=== PATIENT | female | born 1995 | race Caucasian/White ===

== ENCOUNTER 2017-05-05 02:50 | Inpatient (IN) | payer MEDICAID ==
[2017-05-05] VITALS (11 sets, daily range): BP systolic 95–117; BP diastolic 55–72
[~2017-05-05] VITALS: Ht 165.1 cm; Wt 48.1 kg
[~2017-05-05 02:50] MED LIST: Acetaminophen/Hydrocodone Bi PO; CIPR500T4 PO; TAMS0.4C96 PO
--- NOTE | 2017-05-05 03:02 | NUR ---
PATIENT TO ER BED 5
--- NOTE | 2017-05-05 03:21 | NUR ---
DR. VARNER BEDSIDE
[2017-05-05] MEDS ORDERED: HYDROmorphone 1 MG/ML AMP IVP ONE ×2 (03:25→05:00)
[2017-05-05] MEDS ORDERED: ONDANSETRON 4 MG/2 ML VIAL IVP ONE (03:25)
[2017-05-05 03:26] LABS: HEMATOCRIT 41.3 % (36-48); HEMOGLOBIN 13.7 g/dL (12.0-16.0); MEAN CORPUSCULAR HEMOGLOBIN 30 pg (27-31); MEAN CORPUSCULAR HGB CONC 33 g/dL (33-37); MEAN CORPUSCULAR VOLUME 91 fL (80-94); PLATELET COUNT (AUTO) 199 K/uL (140-450); RED BLOOD CELL COUNT(AUTO) 4.53 MIL/uL (4.20-5.40); RED CELL DISTRIBUTION WIDTH 12.6 % (11.6-13.7); WHITE BLOOD COUNT (AUTO) 23.5 K/uL (4.8-10.8)
[2017-05-05] MEDS ORDERED: NACL 0.9% 1,000 ML IV ONE ×4 (03:30→05:40)
[2017-05-05 03:36] LABS: ALBUMIN 2.8 g/dL (3.4-5.0); CARBON DIOXIDE 26.4 mmol/L (21-32); CREATININE 2.1 mg/dL (0.6-1.3); POTASSIUM 4.4 mmol/L (3.5-5.1); TOTAL BILIRUBIN 0.6 mg/dL (0.0-1.0); TOTAL PROTEIN, SERUM 7.2 g/dL (6.4-8.2)
[2017-05-05 03:39] LABS: BAND % (MANUAL) 40 % (0-8); LYMPHOCYTES % (MANUAL) 6 % (20-46); METAMYELOCYTES % 2 % (0-0); NEUTROPHILS % (MANUAL) 52 (43-65)
--- NOTE | 2017-05-05 03:39 | NUR ---
21Y/F PT. PRESENT TO ED WITH C/O PAIN TO LT. FLANK X 4 DAYS. PT. STATES PAIN STARTED 4 DAYS AGO , NO FEVER, NO N/V/D. HX. KIDNEY STONE. AAO X 4 AMBULATORY WITH STEADY GAIT. RESPIRATIONS ROOM AIR, EVEN AND UNLABORED. SKIN WARM AND DRY. C/O PAIN 8/, VS TACHY CARDIA VA 120 BPM, ER MD MADE AWARE OF PT. STATUS.
[2017-05-05 03:46] LABS: APPEARANCE,URINE HAZY (CLEAR); BILIRUBIN,URINE NEGATIVE (NEGATIVE); BLOOD, URINE 2+ (NEGATIVE); COLOR,URINE YELLOW (YELLOW); LEUKOCYTE ESTERASE ,URINE 1+ (NEGATIVE); NITRITE, URINE NEGATIVE (NEGATIVE); PROTEIN,URINE 2+ (NEGATIVE); UGLUCOSE NEGATIVE (NEGATIVE); UROBILINOGEN,URINE 0.2 EU/dL (0.2 - 1)
[2017-05-05 04:01] LABS: BACTERIA,URINE 3+ /HPF (None Seen); RBC,URINE 11-20 (MOD) /HPF (0-5)
[2017-05-05 04:02] LABS: WBC,URINE 60-80 /HPF (0-5)
[2017-05-05] MEDS ORDERED: cefTRIAXone 1,000 MG VIAL ONE (04:31)
--- NOTE | 2017-05-05 05:35 | NUR ---
Patient appears to be resting comfortably in bed. Vital Signs within normal limits. Respirations even and unlabored.
[2017-05-05] MEDS ORDERED: DOCUSATE SODIUM 100 MG GELCAP PO PRN (06:00)
[2017-05-05] MEDS ORDERED: ONDANSETRON 4 MG/2 ML VIAL IM/IVP PRN (06:00)
--- NOTE | 2017-05-05 06:25 | NUR ---
Patient will be admitted to care of . Admited to TELEMETRY. Will go to [id number]. Belongings list completed. Report to RIZWANA STONE.
[2017-05-05 06:26] LABS: INR 1.3 (0.8-1.2); PARTIAL THROMBOPLASTIN TIME 39.5 secs (22-35.6); PROTHROMBIN TIME 13.6 secs (10.8-13.4)
[2017-05-05 06:37] LABS: AMPHETAMINE, URINE POS. ng/ml (NEG <=1000); BARBITURATE, URINE NEG. ng/ml (NEG <=200); BENZODIAZEPINE, URINE POS. ng/mL (NEG <=200); CANNABINOID, URINE POS. ng/mL (NEG <=50); COCAINE, URINE NEG. ng/mL (NEG <=300); OPIATE, URINE NEG. ng/mL (NEG <=2000); PHENCYCLIDINE SCREEN,URINE NEG. ng/mL (NEG <=25)
--- NOTE | 2017-05-05 06:37 | NUR ---
RECEIVED FROM ER SLEEPY BUT WAKES UP WHEN TALKED TO. DX. OF PYELONEPHRITIS . NPO EXCEPT MEDICATIONS. ABLE TO VERBALIZE WELL IN NIGERIEN. ON TELEMETRY MONITORING. NSR WITH NO ECTOPY NOTED. SKIN INTACT. NO EDEMA. CALL LIGHT WITH IN REACH, CARE PLANS FOR THE DAY DISCUSSED WITH HER AND BOYFRIEND. RAPID RESPONSE EXPLAINED TO PT. NO SOB. IVF SITE TO RAC #20 AND LAC #20.DENIES PAIN AT THIS TIME RT MEDICATED WITH DILAUDID IVP IN ER PRIOR COMING OVER TO FLOOR.
[2017-05-05 06:54] LABS: MAGNESIUM 1.8 mg/dL (1.8-2.4)
[2017-05-05 06:56] LABS: PHOSPHORUS 4.4 mg/dL (2.5-4.9)
[2017-05-05 06:57] LABS: FREE T4 (FREE THYROXINE) 1.43 ng/dL (0.76-1.46); THYROID STIMULATING HORMONE 2.1 uIU/mL (0.34-3.74)
--- NOTE | 2017-05-05 07:03 | NUR ---
ENDORSED TO THE AM RN FOR CONTINUATION OF CARE. SLEEPING. BOYFRIEND AT BEDSIDE.
--- NOTE | 2017-05-05 07:04 | NUR ---
RECEIVED PT FROM CHASE AT BEDSIDE. PT IS A&OX4. NO DISTRESS NOTED. PT HAS IV ON L AC G20 AND R AC G20 SL AT THIS TIME. WILL CONNECT PT TO NS IVF. WILL CALL FOR SCDS. PT HAS NO COMPLAINTS AT THIS TIME, DROWSY. CALL LIGHT WITHIN REACH. WILL CONTINUE TO MONITOR.
[2017-05-05] MEDS: NACL 0.9% 1,000 ML IV SCH (08:00)
[2017-05-05] MEDS: TAMSULOSIN 0.4 MG CAP PO SCH (08:33)
[2017-05-05 08:39] LABS: LACTIC ACID 1.6 mmol/L (0.4-2.0)
--- NOTE | 2017-05-05 09:00 | NUR ---
PT TOLERATED MORNING MED WELL. DR. HARRIS EXAMINED PT AND EXPLAINED PLAN OF CARE. CALL LIGHT WITHIN REACH. WILL CONTINUE TO MONITOR.
--- NOTE | 2017-05-05 10:08 | NUR ---
PATIENT HAS BEEN SCREENED AND CATEGORIZED HIGH NUTRITION RISK. PATIENT WILL BE SEEN WITHIN 1-2 DAYS OF ADMISSION. 05/05/17-05/06/[address]
[2017-05-05] MEDS: ACETAMINOPHEN 325 MG TAB PO PRN ×2 (11:16→18:09)
[2017-05-05] MEDS: MORPHINE SULFATE 2 MG/ML SYR IVP PRN ×2 (11:17→17:13)
--- NOTE | 2017-05-05 11:17 | NUR ---
PT C/O PAIN, MORPHINE ADMINISTERED. PT HAS FEVER 101.8. TYLENOL ADMINISTERED. PT TOLERATED WELL. CALL LIGHT WITHIN REACH. WILL CONTINUE TO MONITOR.
--- NOTE | 2017-05-05 12:12 | NUR ---
U/S TECHS AT BEDSIDE PERFORMING TEST. PT IS SWEATING. TEMP 99.8. CALL LIGHT WITHIN REACH. WILL CONTINUE TO MONITOR.
--- NOTE | 2017-05-05 12:46 | NUR ---
SPOKE TO DR. FRANCO REGARDING PT'S HIGH TEMP AND HIGH PULSE RATE 115 AT 1209.
--- NOTE | 2017-05-05 12:50 | NUR ---
SPOKE TO DR. HARRIS REGARDING PT'S HIGH TEMP AND PULSE RATE.
--- NOTE | 2017-05-05 13:15 | NUR ---
PT TRANSPORTED VIA GURNEY TO OR WITH OR NURSES. PT IN STABLE CONDITION.
[2017-05-05] MEDS ORDERED: fentaNYL 0.05 MG/ML VIAL ONE (13:22)
[2017-05-05] MEDS ORDERED: MIDAZOLAM 2 MG/2 ML VIAL ONE (13:22)
--- NOTE | 2017-05-05 14:35 | NUR ---
PT CAME BACK FROM OR. L NEPHROSTOMY TUBE IN PLACE DRAINING SEROSANGUINOUS FLUID AT THIS TIME. PT IS SLEEPING. VS WNL. WILL MONITOR CLOSELY. CALL LIGHT WITHIN REACH.
--- NOTE | 2017-05-05 16:00 | NUR ---
VS WNL. PT IS SLEEPING. CALL LIGHT WITHIN REACH. WILL CONTINUE TO MONITOR.
--- NOTE | 2017-05-05 17:13 | NUR ---
PT C/O PAIN, ADMINISTERED MORPHINE. PROVIDED EXTRA BLANKET AND PILLOW. CALL LIGHT WITHIN REACH. WILL CONTINUE TO MONITOR.
--- NOTE | 2017-05-05 17:50 | NUR ---
EMPTIED 80ML OF SEROSANGUINOUS FLUID FROM NEPHROSTOMY TUBE.
--- NOTE | 2017-05-05 18:09 | NUR ---
ADMINISTERED TYLENOL FOR 100.4 TEMP. PT IS SHIVERING. COVERED PT WITH 1 SHEET. CALL LIGHT WITHIN REACH. WILL CONTINUE TO MONITOR.
--- NOTE | 2017-05-05 19:30 | NUR ---
RECEIVED REPORT FROM DAY RN AT BEDSIDE PATIENT IS AAOX4 ON ROOM AIR, NO SOB OR SIGN OF DISTRESS AT THIS TIME IV TO RAC AND LAC PATENT AND INTACT, SKIN INTACT WITH LEFT SIDE NEPHROSTOMY TUBE IN PLACE DRAINING DARK YELLOW URINE. PT DENIES PAIN AT THIS TIME, DISCUSSED PLAN OF CARE WITH PATIENT, PT VERBALIZED UNDERSTANDING, CALL LIGHT WITHIN REACH. WILL CONTINUE TO MONITOR.
--- NOTE | 2017-05-05 19:37 | NUR ---
ENDORSED CARE OF PT TO PHYSICIAN PRACTICE CONSULTANT NURSE AT BEDSIDE. PT IN STABLE CONDITION.
[2017-05-05] MEDS: HYDROcodone/APAP 7.5/325 MG 1 TAB PO PRN (20:55)
--- NOTE | 2017-05-05 20:57 | NUR ---
PT RESTING IN BED, C/O LOWER BACK AND HEADACHE PAIN, ADMINISTERED NORCO PER MD ORDER, CALL LIGHT WITHIN REACH. WILL CONTINUE TO MONITOR
--- NOTE | 2017-05-05 22:00 | NUR ---
PT SLEEPING, NO SOB OR SIGN OF DISTRESS, CALL LIGHT WITHIN REACH. WILL CONTINUE TO MONITOR.
[2017-05-06] VITALS: BP 96/55
--- NOTE | 2017-05-06 | NUR ---
VITAL SIGNS STABLE, NO SOB OR SIGN OF DISTRESS, CALL LIGHT WITHIN REACH. WILL CONTINUE TO MONITOR.
[2017-05-06] MEDS: HYDROcodone/APAP 7.5/325 MG 1 TAB PO PRN ×4 (01:21→16:20)
--- NOTE | 2017-05-06 02:54 | NUR ---
PT SLEEPING, NO SIGN OF DISTRESS, CALL LIGHT WITHIN REACH . WILL CONTINUE TO MONITOR
[2017-05-06 04:00] VITALS: BP 94/52
--- NOTE | 2017-05-06 04:00 | NUR ---
VITAL SIGNS STABLE, NO SOB OR SIGN OF DISTRESS, CALL LIGHT WITHIN REACH. WILL CONTINUE TO MONITOR
[2017-05-06] MEDS: NACL 0.9% 1,000 ML IV SCH (05:28)
[2017-05-06 06:40] LABS: HEMOGLOBIN A1C 5.1 % (4.8-5.6); T4 (THYROXINE) 6.9 ug/dL (4.5-12.0)
[2017-05-06 06:51] LABS: HEMATOCRIT 39.7 % (36-48); HEMOGLOBIN 13.3 g/dL (12.0-16.0); MEAN CORPUSCULAR HEMOGLOBIN 30 pg (27-31); MEAN CORPUSCULAR HGB CONC 34 g/dL (33-37); MEAN CORPUSCULAR VOLUME 91 fL (80-94); PLATELET COUNT (AUTO) 160 K/uL (140-450); RED BLOOD CELL COUNT(AUTO) 4.37 MIL/uL (4.20-5.40); RED CELL DISTRIBUTION WIDTH 12.8 % (11.6-13.7); WHITE BLOOD COUNT (AUTO) 15.7 K/uL (4.8-10.8)
[2017-05-06 07:02] LABS: ANION GAP 10.5 (8-16); CARBON DIOXIDE 24.9 mmol/L (21-32); CREATININE 1.2 mg/dL (0.6-1.3); POTASSIUM 4.4 mmol/L (3.5-5.1)
[2017-05-06 07:06] LABS: PHOSPHORUS 2.5 mg/dL (2.5-4.9)
--- NOTE | 2017-05-06 07:27 | NUR ---
ENDORSED PATIENT TO DAY RN AT BEDSIDE, PATIENT IN STABLE CONDITION
--- NOTE | 2017-05-06 07:28 | NUR ---
RECEIVED PT FROM WILLIAM WAGONER AT BEDSIDE. PT IS SLEEPING. NO DISTRESS NOTED. PT HAS IV ON R AC 20G AND L AC 20G SL RUNNING NS@45 ON R AC. PT C/O PAIN AT NEPHROSTOMY TUBE SITE, WILL MEDICATE WHEN DUE. CALL LIGHT WITHIN REACH. WILL CONTINUE TO MONITOR.
[2017-05-06 08:00] VITALS: BP 99/53
[2017-05-06 08:19] LABS: BAND % (MANUAL) 11 % (0-8); NEUTROPHILS % (MANUAL) 70 (43-65)
[2017-05-06 08:20] LABS: EOSINOPHILS % (MANUAL) 0 % (0-4); LYMPHOCYTES % (MANUAL) 16 % (20-46); MONOCYTES % (MANUAL) 3 % (5-12)
--- NOTE | 2017-05-06 09:00 | NUR ---
CHANGED PT'S GOWN AND WHOLE BED. PT'S PERIOD CAME. ACCORDING TO PT SHE HAS PERIOD EVERY 2 WEEKS. PROVIDED PADS AND UNDERWEAR. CALL LIGHT WITHIN REACH. WILL CONTINUE TO MONITOR.
[2017-05-06] MEDS: LACTOBACILLUS RHAMNOSUS GG 1 EACH CAP PO SCH (09:24)
[2017-05-06] MEDS: TAMSULOSIN 0.4 MG CAP PO SCH (09:24)
[2017-05-06] MEDS: ACETAMINOPHEN 325 MG TAB PO PRN ×2 (09:36→20:56)
--- NOTE | 2017-05-06 09:36 | NUR ---
PT C/O HEADACHE, TYLENOL GIVEN. CALL LIGHT WITHIN REACH. WILL CONTINUE TO MONITOR.
--- NOTE | 2017-05-06 11:00 | NUR ---
PT IS SLEEPING. NO DISTRESS NOTED. CALL LIGHT WITHIN REACH. WILL CONTINUE TO MONITOR.
--- NOTE | 2017-05-06 11:52 | NUR ---
PT C/O PAIN. ADMINISTERED NORCO. PT TOLERATED WELL. CALL LIGHT WITHIN REACH. WILL CONTINUE TO MONITOR.
[2017-05-06] MEDS: PIPER/TAZO 3.375GM/D5W PREMIX 50 ML IV SCH ×2 (11:53→18:19)
[2017-05-06 12:00] VITALS: BP 98/59
--- NOTE | 2017-05-06 12:07 | NUR ---
05/06/17 RD INITIAL ASSESSMENT COMPLETED PLEASE REFER TO NUTRITION ASSESSMENT UNDER CARE ACTIVITY FOR ESTIMATED NUTRITIONAL NEEDS. 1. WHEN MEDICALLY FEASIBLE, INITIATE PO DIET TO START ON CLEAR LIQUID AND ADVANCE TOLERATED TO REGULAR DIET 2. REFER TO AGED OR DISABLED CARER NEEDED. SERAFIN GAYT[address] RD
--- NOTE | 2017-05-06 12:30 | NUR ---
PT STATED SHE DOES NOT WANT BOYFRIEND TO VISIT AT THIS TIME. WILL CALL SECURITY.
--- NOTE | 2017-05-06 14:00 | NUR ---
PT IS RESTING IN BED. NO DISTRESS NOTED. CALL LIGHT WITHIN REACH. WILL CONTINUE TO MONITOR.
[2017-05-06 16:00] VITALS: BP 94/62
--- NOTE | 2017-05-06 16:20 | NUR ---
PT C/O PAIN. VS WNL. PAIN MED ADMINISTERED. CALL LIGHT WITHIN REACH. WILL CONTINUE TO MONITOR.
--- NOTE | 2017-05-06 17:30 | NUR ---
PT IS RESTING COMFORTABLY IN BED. DR SHER EXPLAINED TO PT PLAN OF CARE. PT VERBALIZED UNDERSTANDING. CALL LIGHT WITHIN REACH. WILL CONTINUE TO MONITOR.
--- NOTE | 2017-05-06 19:27 | NUR ---
ENDORSED CARE OF PT TO JEZ AT BEDSIDE. PT IN STABLE CONDITION.
--- NOTE | 2017-05-06 19:28 | NUR ---
RECEIVED REPORT FROM AM NURSE. PT IS AOX4, ABLE TO MAKE NEEDS KNOWN. NO S/S OF DISTRESS. NO COMPLAINTS OF PAIN AT THIS TIME. ON TELE MONITORING. IV TO THE RIGHT AC AND LEFT AC, PATENT AND INTACT. WITH A NEPHROSTOMY TUBE IN PLACE DRAINING TO YELLOW URINE. DISCUSSED PLAN OF CARE WITH PATIENT. WILL CONTINUE TO MONITOR. ALL NEEDS ATTENDED. CALL LIGHT WITHIN REACH. SAFETY CHECKS IN PLACE.
--- NOTE | 2017-05-06 19:45 | NUR ---
PT'S MOTHER SEEN AT BEDSIDE. REQUESTED TO STAY OVERNIGHT, BUT INFORMED BOTH THE PATIENT AND THE MOTHER OF THE VISITING HOURS BETWEEN 8 AM - 8 PM.
[2017-05-06 20:00] VITALS: BP 106/78
--- NOTE | 2017-05-06 20:30 | NUR ---
PT SEEN BY DR. MACKENZIE, SAID WON'T OPERATE ON PATIENT. DIET WAS CHANGED FROM NPO TO REGULAR DIET. WILL CONTINUE TO MONITOR.
--- NOTE | 2017-05-06 20:56 | NUR ---
PATIENT WAS COMPLAINING OF A MILD HEADACHE. GAVE TYLENOL.
--- NOTE | 2017-05-06 22:32 | NUR ---
PT SEEN ON BED ASLEEP. NO S/S OF DISTRESS. WILL CONTINUE TO MONITOR FOR ANY CHANGES.
[2017-05-07] VITALS: BP 97/56
--- NOTE | 2017-05-07 | NUR ---
VITAL SIGNS TAKEN, AND STABLE. AMBULATED TO THE BATHROOM. HANGED ZOSYN. NO S/S OF DISTRESS. NO COMPLAINTS OF PAIN. WILL CONTINUE TO MONITOR. ALL NEEDS ATTENDED. CALL LIGHT WITHIN REACH. SAFETY CHECKS IN PLACE.
[2017-05-07] MEDS: PIPER/TAZO 3.375GM/D5W PREMIX 50 ML IV SCH ×5 (00:07→23:57)
--- NOTE | 2017-05-07 02:08 | NUR ---
MADE ROUNDS, PT SEEN ASLEEP. NO S/S OF DISTRESS. NO COMPLAINTS OF PAIN. WILL CONTINUE TO MONITOR FOR ANY CHANGES.
[2017-05-07] MEDS: NACL 0.9% 1,000 ML IV SCH ×2 (03:37→12:31)
[2017-05-07 03:56] VITALS: BP 112/71
[2017-05-07] MEDS: HYDROcodone/APAP 7.5/325 MG 1 TAB PO PRN ×3 (04:01→20:02)
--- NOTE | 2017-05-07 04:05 | NUR ---
VITAL SIGNS STABLE, NO S/S OF DISTRESS. COMPLAINED OF ABDOMINAL PAIN 03/15. GAVE NORCO PRN.
[2017-05-07 06:34] LABS: HEMATOCRIT 32.4 % (36-48); HEMOGLOBIN 10.9 g/dL (12.0-16.0); MEAN CORPUSCULAR HEMOGLOBIN 30 pg (27-31); MEAN CORPUSCULAR HGB CONC 33 g/dL (33-37); MEAN CORPUSCULAR VOLUME 90 fL (80-94); PLATELET COUNT (AUTO) 157 K/uL (140-450); RED BLOOD CELL COUNT(AUTO) 3.59 MIL/uL (4.20-5.40); RED CELL DISTRIBUTION WIDTH 12.8 % (11.6-13.7); WHITE BLOOD COUNT (AUTO) 7.6 K/uL (4.8-10.8)
[2017-05-07 06:51] LABS: ANION GAP 12.9 (8-16); CALCIUM 7.6 mg/dL (8.5-10.1); CARBON DIOXIDE 21.9 mmol/L (21-32); CREATININE 1.3 mg/dL (0.6-1.3); POTASSIUM 3.8 mmol/L (3.5-5.1)
[2017-05-07 07:05] LABS: MAGNESIUM 1.4 mg/dL (1.8-2.4); PHOSPHORUS 2.6 mg/dL (2.5-4.9)
--- NOTE | 2017-05-07 07:10 | NUR ---
RECIVE REPORT FROM NIGHT NURSE, PT IS AAOX4, ON ROOM AIR, IV TO LEFT AC 20G SALINE LOCK, RIGHT AC 20G INFUSING WELL, LEFT SIDE NEPHROSTOMY TUBE, INITIAL ASSESSMENT COMPLETED, REVIEWED PLAN OF CARE WITH PT, PT VERBALIZED UNDERSTANDING, ALL NEEDS MET. WILL CONTINUE TO MONITOR.
--- NOTE | 2017-05-07 07:20 | NUR ---
ENDORSED TO MORNING SHIFT NURSE FOR CONTINUITY OF CARE, WILL CONTINUE TO MONITOR FOR ANY CHANGES.
[2017-05-07 07:38] LABS: BAND % (MANUAL) 14 % (0-8); EOSINOPHILS % (MANUAL) 1 % (0-4); LYMPHOCYTES % (MANUAL) 22 % (20-46); MONOCYTES % (MANUAL) 4 % (5-12); NEUTROPHILS % (MANUAL) 59 (43-65)
[2017-05-07 07:47] VITALS: BP 92/59
[2017-05-07] MEDS: TAMSULOSIN 0.4 MG CAP PO SCH (08:27)
[2017-05-07] MEDS: LACTOBACILLUS RHAMNOSUS GG 1 EACH CAP PO SCH (08:27)
--- NOTE | 2017-05-07 08:30 | NUR ---
DUE MEDICATIONS GIVEN, PT TOLERATED WELL, PT CURRENTLY EATING BREAKFAST, C/O ABD PAIN 03/15, MEDICATED PER MD ORDERS . WILL CONTINUE TO MONITOR.
[2017-05-07] MEDS ORDERED: POTASSIUM CHLORIDE 10 MEQ TABER PO SCH (09:41)
[2017-05-07] MEDS ORDERED: MAG SULF 2000 MG/WATER PREMIX 50 ML IV SCH (09:42)
--- NOTE | 2017-05-07 10:15 | NUR ---
PT CURRENTLY SLEEPING. CALL LIGHT WITHIN REACH, WILL CONTINUE TO MONITOR.
[2017-05-07 12:00] VITALS: BP 104/55
--- NOTE | 2017-05-07 12:45 | NUR ---
PT SLEEPING AT THIS TIME. CALL LIGHT WITHIN REACH. WILL CONTINUE TO MONITOR.
--- NOTE | 2017-05-07 15:15 | NUR ---
CHECKED IN ON PT, PT CURRENTLY SLEEPING AWAKENS TO NAME. CALL LIGHT WITHIN REACH. WILL CONTINUE TO MONITOR.
[2017-05-07 16:00] VITALS: BP 113/72
--- NOTE | 2017-05-07 17:03 | NUR ---
DUE MEDICATIONS GIVEN, ALL NEEDS MET. WILL CONTINUE TO MONITOR.
--- NOTE | 2017-05-07 19:19 | NUR ---
ENDORSED PLAN OF CARE TO NIGHT NURSE, PT IN STABLE CONDITION.
--- NOTE | 2017-05-07 19:20 | NUR ---
RECEIVED REPORT FROM AM NURSE. PT IS AOX4, ON ROOM AIR. WITH MOTHER AT BEDSIDE. NO S/S OF DISTRESS. WITH A LEFT AC 20 G SL, PATENT AND INTACT. WITH A RIGHT AC 20 G, PATENT AND INTACT, INFUSING WELL. WITH A LEFT SIDE NEPHROSTOMY TUBE DRAINING TO YELLOW URINE. INITIAL ASSESSMENT DONE. REVIEWED PLAN OF CARE AND REORIENTED THE PATIENT TO THE UNIT, VERBALIZED UNDERSTANDING. CALL LIGHT WITHIN REACH. SAFETY CHECKS IN PLACE. WILL CONTINUE TO MONITOR FOR ANY CHANGES.
[2017-05-07 19:48] VITALS: BP 98/63
--- NOTE | 2017-05-07 20:02 | NUR ---
PT COMPLAINED OF ABDOMINAL PAIN OF 6/10. GAVE NORCO PRN. WILL CONTINUE TO MONITOR. ALL NEEDS ATTENDED. CALL LIGHT WITHIN REACH. SAFETY CHECKS IN PLACE.
--- NOTE | 2017-05-07 22:04 | NUR ---
MADE ROUNDS, PT SEEN ASLEEP. NO S/S OF DISTRESS. NO COMPLAINTS OF PAIN. WILL CONTINUE TO MONITOR. ALL NEEDS ATTENDED. CALL LIGHT WITHIN REACH. SAFETY CHECKS IN PLACE.
[2017-05-08] VITALS: BP 97/65
--- NOTE | 2017-05-08 00:27 | NUR ---
VITAL SIGNS TAKEN, IN STABLE CONDITION. NO S/S OF DISTRESS. NO COMPLAINTS OF PAIN. WILL CONTINUE TO MONITOR. CALL LIGHT WITHIN REACH. SAFETY CHECKS IN PLACE.
--- NOTE | 2017-05-08 02:14 | NUR ---
MADE ROUNDS. PT SLEEPING. NO S/S OF DISTRESS. WILL CONTINUE TO MONITOR. CALL LIGHT WITHIN REACH.
[2017-05-08 04:00] VITALS: BP 114/72
--- NOTE | 2017-05-08 04:07 | NUR ---
VITAL SIGNS TAKEN, IN STABLE CONDITION. NO COMPLAINTS OF PAIN. NO S/S OF DISTRESS. WILL CONTINUE TO MONITOR. ALL NEEDS ATTENDED. CALL LIGHT WITHIN REACH. SAFETY CHECKS IN PLACE.
[2017-05-08] MEDS: PIPER/TAZO 3.375GM/D5W PREMIX 50 ML IV SCH (05:37)
[2017-05-08 05:55] LABS: HEMATOCRIT 35.4 % (36-48); HEMOGLOBIN 11.9 g/dL (12.0-16.0); MEAN CORPUSCULAR HEMOGLOBIN 30 pg (27-31); MEAN CORPUSCULAR HGB CONC 34 g/dL (33-37); MEAN CORPUSCULAR VOLUME 90 fL (80-94); PLATELET COUNT (AUTO) 165 K/uL (140-450); RED BLOOD CELL COUNT(AUTO) 3.95 MIL/uL (4.20-5.40); RED CELL DISTRIBUTION WIDTH 12.6 % (11.6-13.7); WHITE BLOOD COUNT (AUTO) 7.2 K/uL (4.8-10.8)
--- NOTE | 2017-05-08 06:02 | NUR ---
MADE ROUNDS, PATIENT ASLEEP. NO S/S OF DISTRESS. WILL CONTINUE TO MONITOR. CALL LIGHT WITHIN REACH.
[2017-05-08 07:00] LABS: BAND % (MANUAL) 13 % (0-8); EOSINOPHILS % (MANUAL) 1 % (0-4); LYMPHOCYTES % (MANUAL) 18 % (20-46); MONOCYTES % (MANUAL) 8 % (5-12); NEUTROPHILS % (MANUAL) 60 (43-65)
[2017-05-08 07:01] LABS: ANION GAP 12.7 (8-16); CALCIUM 8.3 mg/dL (8.5-10.1); CARBON DIOXIDE 24.7 mmol/L (21-32); CREATININE 1.1 mg/dL (0.6-1.3); POTASSIUM 4.4 mmol/L (3.5-5.1)
[2017-05-08 07:06] LABS: MAGNESIUM 1.7 mg/dL (1.8-2.4); PHOSPHORUS 2.8 mg/dL (2.5-4.9)
--- NOTE | 2017-05-08 07:18 | NUR ---
ENDORSED TO AM SHIFT NURSE FOR CONTINUITY OF CARE, IN STABLE CONDITION.
--- NOTE | 2017-05-08 07:19 | NUR ---
RECEIVED PT FROM JEZ WAGONER AT BEDSIDE. PT IS SLEEPING. PT HAS IV ON BOTH AC BOTH 20G, RUNNING NS@45 ON L AC. NO DISTRESS NOTED. PT HAS L NEPHROSTOMY TUBE DRAINING CLEAR URINE, EMPTIED 100ML AT THIS TIME. CALL LIGHT WITHIN REACH. WILL CONTINUE TO MONITOR.
[2017-05-08 08:00] VITALS: BP 114/77
[2017-05-08] MEDS ORDERED: FERROUS SULFATE 325 MG TABEC PO SCH (08:00)
[2017-05-08] MEDS: TAMSULOSIN 0.4 MG CAP PO SCH (08:57)
[2017-05-08] MEDS: LACTOBACILLUS RHAMNOSUS GG 1 EACH CAP PO SCH (08:57)
[2017-05-08] MEDS ORDERED: ASCORBIC ACID 500 MG TAB PO SCH (09:00)
--- NOTE | 2017-05-08 09:30 | NUR ---
PT TOLERATED MORNING MEDS WELL. CALL LIGHT WITHIN REACH. WILL CONTINUE TO MONITOR.
[2017-05-08] MEDS ORDERED: SULF-58 PO ×2 (09:35→11:48)
[2017-05-08] MEDS ORDERED: LACT10CA1 PO (09:35)
[2017-05-08 10:00] VITALS: BP 114/77
--- NOTE | 2017-05-08 10:40 | NUR ---
PT SIGNED ALL PAPERWORK AND VERBALIZED UNDERSTANDING. PRESCRIPTIONS GIVEN TO PT. DSG SUPPLIES FOR L NEPHROSTOMY TUBE SITE GIVEN TO PT. EDUCATED PT ON HOW TO CHANGE DSG ON THE SITE. EMPTIED 250ML OF URINE FROM NEPHROSTOMY TUBE BAG. EDUCATED PT ON HOW TO EMPTY. PT VERBALIZED UNDERSTANDING. PT'S MOM IS COMING TO PICK HER UP. PT STATED SHE WILL STAY AT HER AUNT'S HOME. REMOVED IV CANNULA INTACT. ID BANDS REMOVED. CALL LIGHT WITHIN REACH. EDUCATED PT TO CALL WHEN MOM IS HERE.
--- NOTE | 2017-05-08 10:55 | NUR ---
DR. SHER STATED SHE WANTS TO KEEP PT UNTIL THE AFTERNOON AND GIVE LASIX 1 TIME AND INCENTIVE SPIROMETRY. DR. SHER STATED THAT LEARNING MANAGER IS NOT NEEDED. WILL CONTINUE TO MONITOR PT.
[2017-05-08] MEDS ORDERED: FUROSEMIDE 40 MG TAB PO SCH (11:00)
[2017-05-08] MEDS ORDERED: SULFAMETH/TRIMETH DS 800/160MG 1 TAB PO SCH (11:52)
--- NOTE | 2017-05-08 11:52 | NUR ---
PT IS READY TO GO. PT WILL START TAKING ORAL ANTIBIOTICS WHEN SHE GOES HOME TODAY.
--- NOTE | 2017-05-08 11:53 | NUR ---
PT DEMONSTRATED HOW TO EMPTY URINE BAG. EDUCATED PT TO CHECK OFTEN AND EMPTY Q1H. PT VERBALIZED UNDERSTANDING. WALKED PT OUT OF UNIT. PT REFUSED WHEELCHAIR. ACCOMPANIED BY FRIEND. PT IN STABLE CONDITION.
[2017-05-09 08:36] LABS: FERRITIN 113 ng/mL (15-150)
[2017-05-09 11:15] LABS: TRANSFERRIN 161 mg/dL (200 - 370)
== END 2017-05-08 11:53 | disposition home or self-care (01) | DRG 710 ==
LOC: MED 02:50 → MTU 06:05
PROVIDERS: ADMIT Family Medicine; ATTEND Family Medicine
PROC: 0T9430Z Drainage of Left Kidney Pelvis with Drainage Device, Percutaneous Approach (ICD-10-PCS; principal; 2017-05-05 13:00)
DX: A41.9 Sepsis, unspecified organism (principal); N17.0 Acute kidney failure with tubular necrosis; E43 Unspecified severe protein-calorie malnutrition; N12 Tubulo-interstitial nephritis, not specified as acute or chronic; N13.2 Hydronephrosis with renal and ureteral calculous obstruction; E87.1 Hypo-osmolality and hyponatremia; K80.20 Calculus of gallbladder without cholecystitis without obstruction; R65.20 Severe sepsis without septic shock; E83.51 Hypocalcemia; J90 Pleural effusion, not elsewhere classified; E87.6 Hypokalemia; E83.42 Hypomagnesemia; F12.10 Cannabis abuse, uncomplicated; F15.10 Other stimulant abuse, uncomplicated; E87.8 Other disorders of electrolyte and fluid balance, not elsewhere classified; Z79.2 Long term (current) use of antibiotics; Z72.89 Other problems related to lifestyle; Z59.0 Homelessness; Z56.0 Unemployment, unspecified; Z68.1 Body mass index [BMI] 19.9 or less, adult; N39.0 Urinary tract infection, site not specified; D64.9 Anemia, unspecified
CPT/HCPCS: 36415; 50432; 71010; 76705; 76770; 80048; 80053; 80305; 81001; 82150; 82607; 82728; 82746; 83036; 83540; 83605; 83690; 83735; 83880; 84100; 84436; 84439; 84443; 84479; 84484; 84703; 85025; 85045; 85610; 85730; 87040; 87077; 87081; 87086; 87186; 93005; 96361; 96365; 96375; 96376; 99285; C1729; J0696; J1170; J2001; J2250; J2270; J2405; J2543; J3010; J3475; J7030; J7060; Q0092; Q9967

== ENCOUNTER 2017-05-23 13:58 | Inpatient (IN) | payer MEDICAID ==
[~2017-05-23] VITALS: Ht 167.6 cm; Wt 49.9 kg
[~2017-05-23 13:58] MED LIST changes: -CIPR500T4 PO; +LACT10CA1 PO; +SULF-58 PO
[2017-05-23 14:23] VITALS: BP 103/60
--- NOTE | 2017-05-23 14:57 | NUR ---
PATIENT TO BED 8 AT THIS TIME,
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
--- NOTE | 2017-05-23 15:53 | NUR ---
DR. CARDENAS PRESENT AT BEDSIDE.
[2017-05-23] MEDS ORDERED: KETOROLAC 30 MG/ML VIAL IVP ONE (15:55)
[2017-05-23 16:33] LABS: BASOPHILS # (AUTO) 0.2 K/uL (0.00-0.22); BASOPHILS % (AUTO) 1.9 % (0.0-2.0); EOSINOPHILS # (AUTO) 0.2 K/uL (0-0.4); EOSINOPHILS % (AUTO) 1.9 % (0.0-4.0); HEMOGLOBIN 12.4 g/dL (12.0-16.0); LYMPHOCYTES # (AUTO) 1.6 K/uL (2.5-16.5); LYMPHOCYTES % (AUTO) 19.5 % (20.5-51.1); MEAN CORPUSCULAR HEMOGLOBIN 30 pg (27-31); MEAN CORPUSCULAR HGB CONC 34 g/dL (33-37); MEAN CORPUSCULAR VOLUME 90 fL (80-94); MONOCYTES # (AUTO) 0.6 K/uL (0.8-1.0); MONOCYTES % (AUTO) 6.7 % (1.7-9.3); NEUTROPHILS # (AUTO) 5.8 K/uL (1.8-7.7); PLATELET COUNT (AUTO) 496 K/uL (140-450); RED BLOOD CELL COUNT(AUTO) 4.11 MIL/uL (4.20-5.40); RED CELL DISTRIBUTION WIDTH 12.8 % (11.6-13.7); WHITE BLOOD COUNT (AUTO) 8.4 K/uL (4.8-10.8)
[2017-05-23 16:36] LABS: APPEARANCE,URINE SL CLOUDY (CLEAR); BILIRUBIN,URINE NEGATIVE (NEGATIVE); BLOOD, URINE TRACE-I (NEGATIVE); COLOR,URINE YELLOW (YELLOW); LEUKOCYTE ESTERASE ,URINE TRACE (NEGATIVE); NITRITE, URINE NEGATIVE (NEGATIVE); UGLUCOSE NEGATIVE (NEGATIVE)
[2017-05-23 16:52] LABS: RBC,URINE 0-5 /HPF (0-5); WBC,URINE 60-80 /HPF (0-5)
[2017-05-23 16:54] LABS: ALBUMIN 3.4 g/dL (3.4-5.0); ANION GAP 10.7 (8-16); CARBON DIOXIDE 27.8 mmol/L (21-32); CREATININE 0.9 mg/dL (0.6-1.3); POTASSIUM 4.5 mmol/L (3.5-5.1); TOTAL BILIRUBIN 0.5 mg/dL (0.0-1.0)
[2017-05-23] MEDS ORDERED: ONDANSETRON 4 MG/2 ML VIAL IVP PRN (16:55)
[2017-05-23] MEDS ORDERED: ACETAMINOPHEN 325 MG TAB PO PRN (16:55)
[2017-05-23 17:28] LABS: MAGNESIUM 1.8 mg/dL (1.8-2.4); PHOSPHORUS 3.8 mg/dL (2.5-4.9); PROTHROMBIN TIME 10.9 secs (10.8-13.4)
[2017-05-23 17:29] LABS: BARBITURATE, URINE NEG. ng/ml (NEG <=200); BENZODIAZEPINE, URINE NEG. ng/mL (NEG <=200); CANNABINOID, URINE POS. ng/mL (NEG <=50); COCAINE, URINE NEG. ng/mL (NEG <=300); OPIATE, URINE NEG. ng/mL (NEG <=2000); PHENCYCLIDINE SCREEN,URINE NEG. ng/mL (NEG <=25)
--- NOTE | 2017-05-23 17:31 | NUR ---
PT RESTING AT THIS TIME, BOYFRIEND PRESENT AT BEDSIDE. NO SIGNS OF ACUTE DISTRESS NOTED. PT WILL BE TRANSFERRED TO MED SURG, ROOM 119A. INFORMED THEY ARE CURRENTLY CLEANING THE ROOM. WILL CALL FOR REPORT.
--- NOTE | 2017-05-23 17:33 | NUR ---
CALLED TO GIVE REPORT, INFORMED THAT THERE ARE NO NURSES AVAILABLE AT THIS TIME.
[2017-05-23] MEDS: NACL 0.9% 1,000 ML IV SCH (18:44)
--- NOTE | 2017-05-23 19:23 | NUR ---
REPORT GIVEN TO RIZWANA HOANG. ALL QUESTIONS ANSWERED
--- NOTE | 2017-05-23 19:24 | NUR ---
PT TRANSFERRED TO MED SURG FLOOR, ROOM 119A, ACCOMPANIED BY TECH. PT JAYLYN.
--- NOTE | 2017-05-23 19:45 | NUR ---
RECEIVED PT FROM ER PT IS AAOX4 AMBULATORY ,HL ON LEFT AC PATENT LEFT LUMBAR SITE NEPHKROSTOMY TUNE DRAINING YELLOW COLOR URINE AND ALSO LEAKING AROUND THE TUBE, NOT FEVER , RELATIVES AT BED SIDE INITIAL ASSESSMENT DONE DR MACKENZIE IS HERE AND SEE THE PT.
[2017-05-23 20:00] VITALS: BP 114/57
[2017-05-23] MEDS: DOCUSATE SODIUM 100 MG GELCAP PO SCH (20:52)
[2017-05-23] MEDS ORDERED: cefTRIAXone 1,000 MG VIAL ONE (20:58)
[2017-05-23] MEDS: HYDROcodone/APAP 7.5/325 MG 1 TAB PO PRN (21:23)
--- NOTE | 2017-05-23 21:30 | NUR ---
PT EATING HER DINNER WELL
[2017-05-24] VITALS: BP 98/54
--- NOTE | 2017-05-24 01:28 | NUR ---
AFTER PAIN MEDIC GIVEN PT SLEEP QUIET NOT DISTRESS NOTED
--- NOTE | 2017-05-24 04:00 | NUR ---
SPONGE BATH GIVEN ,LINEN CHANGED PT VOIDING WELL CONTINENT AND ALSO LEAKING URINE FROM NEPHROSTOMY TUBE SITE
--- NOTE | 2017-05-24 06:00 | NUR ---
CONSENT FOR REPLACE LEFT NEPHROSTOMY TUBE WAS SIGNED
[2017-05-24] MEDS: NACL 0.9% 1,000 ML IV SCH ×2 (06:15→09:16)
--- NOTE | 2017-05-24 07:15 | NUR ---
RECEIVED REPORT FROM NIGHT NURSE, PT IS AAOX4,IV TO LEFT AC 20G INFUSING WELL , ON ROOM AIR, LEFT NEPHROSTOMY TUBE, INITIAL ASSESSMENT COMPLETED, REVIEWED PLAN OF CARE WITH PT, PT VERBALIZED UNDERSTANDING, ALL SAFETY PRECAUTIONS MET, BOYFRIEND AT BEDSIDE, CALL LIGHT WITHIN REACH, WILL CONTINUE TO MONITOR.
--- NOTE | 2017-05-24 07:15 | NUR ---
PT IS ENDORSED TO [facility] WAGONER FOR CONTINUITY OF CARE
[2017-05-24 07:53] VITALS: BP 94/54
[2017-05-24] MEDS ORDERED: NON-FORMULARY ITEM (Lactobacillus Rhamnosus GG (Culturelle) 10 Billion) PO SCH (09:00)
[2017-05-24] MEDS: TAMSULOSIN 0.4 MG CAP PO SCH (09:15)
[2017-05-24] MEDS: LACTOBACILLUS RHAMNOSUS GG 1 EACH CAP PO SCH (09:15)
[2017-05-24] MEDS ORDERED: HYDROmorphone 1 MG/ML AMP IVP PRN (09:15)
[2017-05-24] MEDS: DOCUSATE SODIUM 100 MG GELCAP PO SCH ×2 (09:15→20:36)
--- NOTE | 2017-05-24 09:17 | NUR ---
DUE MEDICATION GIVEN,PT TOLERATED WELL, NO S/S OF DISTRESS NOTED, ALL NEEDS MET. CALL LIGHT WITHIN REACH.BOYFRIEND AT BEDSIDE.
--- NOTE | 2017-05-24 09:54 | NUR ---
PATIENT HAS BEEN SCREENED AND CATEGORIZED HIGH NUTRITION RISK. PATIENT WILL BE SEEN WITHIN 1-2 DAYS OF ADMISSION. 05/24/17-05/25/[address]
--- NOTE | 2017-05-24 10:25 | NUR ---
PT LEFT UNIT TO OR IN STABLE CONDITION.
[2017-05-24] MEDS ORDERED: MIDAZOLAM 2 MG/2 ML VIAL ONE (10:48)
[2017-05-24] MEDS ORDERED: fentaNYL 0.05 MG/ML VIAL ONE (10:48)
--- NOTE | 2017-05-24 11:45 | NUR ---
PT RETURNED TO ROOM FROM OR, LEFT BACK SIDE NEPHROSTOMY TUBE IN PLACE WITH DRESSING DRY AND INTACT. VS:98.7, BP 97/60, HR 74 PULSE OX 100 ON ROOM AIR, ALL SAFETY PRECAUTIONS MET, CALL LIGHT WITHIN REACH, BOYFRIEND AT BEDSIDE.
--- NOTE | 2017-05-24 13:24 | NUR ---
PT CURRENTLY RESTING IN BED. NO S/S OF DISTRESS NOTED, BOYFRIEND AT BEDSIDE. WILL CONTINUE TO MONITOR.
--- NOTE | 2017-05-24 14:35 | NUR ---
05/24/17 RD INITIAL ASSESSMENT COMPLETED PLEASE REFER TO NUTRITION ASSESSMENT UNDER CARE ACTIVITY FOR ESTIMATED NUTRITIONAL NEEDS. RD RECOMMENDATIONS: 1. CONTINUE CURRENT DIET TOLERATED. 2. IF PT HAS INADEQUATE PO INTAKE, CONSIDER ENCOURAGING INCREASED PO INTAKE FOR ADEQUATE NUTRITION AND HEALING. 3. RD WILL F/U 3-5 DAYS; MODERATE RISK. MEREDITH JUAN, RD
[2017-05-24] MEDS: HYDROcodone/APAP 7.5/325 MG 1 TAB PO PRN ×2 (15:38→20:33)
[2017-05-24 16:00] VITALS: BP 106/60
--- NOTE | 2017-05-24 16:30 | NUR ---
PT CURRENTLY SLEEPING AWAKENS TO NAME, NO S/S OF DISTRESS NOTED, BOYFRIEND AT BEDSIDE. CALL LIGHT WITHIN REACH, WILL CONTINUE TO MONITOR.
--- NOTE | 2017-05-24 17:46 | NUR ---
PT CURRENTLY RESTING IN BED WATCHING TV, NO S/S OF DISTRESS NOTED, ALL NEEDS MET, CALL LIGHT WITHIN REACH. WILL CONTINUE TO MONITOR.
--- NOTE | 2017-05-24 19:11 | NUR ---
ENDORSED PLAN OF CARE TO NIGHT NURSE, NO S/S OF DISTRESS NOTED. CALL LIGHT WITHIN REACH.
--- NOTE | 2017-05-24 19:15 | NUR ---
RECEIVED PT FROM [facility] RN PT IS AAOX4 AMBULATORY IV ON LEFT AC INFUSING WELL, NEPHROSTOMYTUBE DRAINING WELL YELLOW URINE, RELATIVES AT BED SIDE INITIAL ASSESSMENT DONE
[2017-05-24 20:00] VITALS: BP 133/83
--- NOTE | 2017-05-24 22:00 | NUR ---
AFTER LPAIN MEDIC GIVEN PT REMAIN STABLE GETTING SLEEP
[2017-05-25] VITALS: BP 105/75
--- NOTE | 2017-05-25 02:00 | NUR ---
PTAMBULATES TO THE RESTROOMVOOIDING WELL AND ALSO DRAINING WELL FROM NEPHROSTOMY TUBE YELLOW COLOR URINE
[2017-05-25] MEDS: NACL 0.9% 1,000 ML IV SCH (05:28)
--- NOTE | 2017-05-25 06:17 | NUR ---
SPONGE BATH GIVEN LINEN CHANGED NOT DISTRESS NOTED IV ON LEFT AC INFUSING WELL LEFT NEPHROSTOMY TUBE DRAINING WELL YELLOW URINE
--- NOTE | 2017-05-25 07:10 | NUR ---
RECEIVED REPORT FROM NIGHT NURSE, PT IS AAOX4, ON ROOM AIR, IV TO L AC 20 G INFUSING WELL, NEPHROSTOMY TUBE INTACT, INITIAL ASSESSMENT COMPLETED, REVIEWED PLAN OF CARE WITH PT, PT VERBALIZED UNDERSTANDING ALL SAFETY PRECAUTIONS MET, CALL LIGHT WITHIN REACH, WILL CONTINUE TO MONITOR.
[2017-05-25 07:21] LABS: BASOPHILS # (AUTO) 0.2 K/uL (0.00-0.22); BASOPHILS % (AUTO) 3.9 % (0.0-2.0); EOSINOPHILS # (AUTO) 0.2 K/uL (0-0.4); EOSINOPHILS % (AUTO) 3.3 % (0.0-4.0); HEMATOCRIT 33.8 % (36-48); HEMOGLOBIN 11.7 g/dL (12.0-16.0); LYMPHOCYTES # (AUTO) 2.3 K/uL (2.5-16.5); LYMPHOCYTES % (AUTO) 39.3 % (20.5-51.1); MEAN CORPUSCULAR HEMOGLOBIN 30 pg (27-31); MEAN CORPUSCULAR HGB CONC 35 g/dL (33-37); MEAN CORPUSCULAR VOLUME 88 fL (80-94); MONOCYTES # (AUTO) 0.5 K/uL (0.8-1.0); MONOCYTES % (AUTO) 7.8 % (1.7-9.3); NEUTROPHILS # (AUTO) 2.7 K/uL (1.8-7.7); NEUTROPHILS % (AUTO) 45.7 % (42.2-75.2); PLATELET COUNT (AUTO) 331 K/uL (140-450); RED BLOOD CELL COUNT(AUTO) 3.84 MIL/uL (4.20-5.40); RED CELL DISTRIBUTION WIDTH 12.5 % (11.6-13.7); WHITE BLOOD COUNT (AUTO) 5.9 K/uL (4.8-10.8)
[2017-05-25 07:34] LABS: ANION GAP 8.9 (8-16); CREATININE 0.7 mg/dL (0.6-1.3); POTASSIUM 3.9 mmol/L (3.5-5.1)
[2017-05-25 07:38] LABS: MAGNESIUM 1.8 mg/dL (1.8-2.4); PHOSPHORUS 3.4 mg/dL (2.5-4.9)
[2017-05-25 08:00] VITALS: BP 117/72
[2017-05-25] MEDS: TAMSULOSIN 0.4 MG CAP PO SCH (08:55)
[2017-05-25] MEDS: LACTOBACILLUS RHAMNOSUS GG 1 EACH CAP PO SCH (08:55)
[2017-05-25] MEDS: DOCUSATE SODIUM 100 MG GELCAP PO SCH (08:56)
--- NOTE | 2017-05-25 08:57 | NUR ---
ALL DUE MEDICATIONS GIVEN, PT TOLERATED WELL, ALL SAFETY PRECAUTIONS MET, CALL LIGHT WITHIN REACH, WILL CONTINUE TO MONITOR,
--- NOTE | 2017-05-25 11:00 | NUR ---
CHECKED IN ON PT, PT RESTING COMFORTABLY IN BED WITH SIGNIFICANT OTHER AT THE BEDSIDE. PT DENIES ANY PAIN, ALL SAFETY PRECAUTIONS MET, CALL LIGHT WITHIN REACH, WILL CONTINUE TO MONITOR
[2017-05-25] MEDS ORDERED: LEVO750T2 PO (11:46)
--- NOTE | 2017-05-25 15:00 | NUR ---
DISCUSSED DISCHARGE INSTRUCTIONS WITH PT, FOLLOW UP INFORMATION GIVEN, PRESCRIPTION EDUCATION GIVEN, EDUCATION OF SIDE EFFECTS OF MEDICATION GIVEN, PT VERBALIZED UNDERSTANDING. IV REMOVED, TIP IN TACT, ALL PERSONAL BELONGINGS GIVEN, ID BANDS REMOVED.
--- NOTE | 2017-05-25 15:15 | NUR ---
PT WAS WALKED TO LOBBY WITH FRIEND, NO SIGNS OF DISTRESS NOTED. PT IN STABLE CONDITION.
--- NOTE | 2017-05-25 15:16 | NUR ---
CHECKED IN ON PT. ASSESSED DRESSING ON NEPHROSTOMY TUBE. DRESSING DRY AND INTACT. PT DENIES ANY PAIN. ALL SAFETY PRECAUTIONS MET, CALL LIGHT WITHIN REACH, WILL CONTINUE TO MONITOR.
== END 2017-05-25 15:15 | disposition home or self-care (01) | DRG 463 ==
LOC: MED 13:58 → MTU 17:01
PROVIDERS: ADMIT Family Medicine; ATTEND Family Medicine
PROC: BT121ZZ Fluoroscopy of Left Kidney using Low Osmolar Contrast (ICD-10-PCS; principal; 2017-05-24 10:45)
DX: N39.0 Urinary tract infection, site not specified (principal); N17.0 Acute kidney failure with tubular necrosis; Z43.6 Encounter for attention to other artificial openings of urinary tract; I10 Essential (primary) hypertension; E11.9 Type 2 diabetes mellitus without complications; N20.0 Calculus of kidney; F15.19 Other stimulant abuse with unspecified stimulant-induced disorder; F12.10 Cannabis abuse, uncomplicated; Z59.0 Homelessness; Z79.899 Other long term (current) drug therapy
CPT/HCPCS: 36415; 50432; 80048; 80053; 80305; 81001; 81025; 82150; 83605; 83690; 83735; 83880; 84100; 85025; 85610; 85730; 87040; 87077; 87081; 87086; 87186; 90715; 99285; C1729; J0696; J1885; J2001; J2250; J3010; J7030; J7060